=== PATIENT | male | born 1990 | race Hispanic/Latino ===

== ENCOUNTER 2020-07-08 14:52 | Emergency (ER) | payer SELFPAY ==
[2020-07-08] MEDS ORDERED: NS 1,000 ML IV ONE (16:15)
[2020-07-08 16:41] LABS: BASO % 0.4 % (0.0-1.0); EOS # 0.1 10^3/uL (0.0-0.5); EOS % 1.3 % (0.0-3.0); HEMATOCRIT 45.3 % (42.0-52.0); HEMOGLOBIN 14.8 g/dl (13.5-17.5); LYMPH # 2.6 10^3/uL (1.5-5.0); LYMPH % 34.1 % (24.0-44.0); MEAN CORPUSCULAR HEMOGLOBIN 29.7 pg (27.0-33.0); MEAN CORPUSCULAR HGB CONC 32.7 g/dl (32.0-36.5); MONO # 0.5 10^3/uL (0.0-0.8); MONO % 6.2 % (0.0-5.0); NEUTROPHILS # 4.4 10^3/uL (1.5-8.5); NEUTROPHILS % 57.6 % (36.0-66.0); PLATELET COUNT, AUTOMATED 280 10^3/uL (150-450); RED BLOOD COUNT 4.98 10^6/uL (4.30-6.10); WHITE BLOOD COUNT 7.6 10^3/uL (4.0-10.0)
[2020-07-08] MEDS ORDERED: KETOROLAC 30 MG/ML 1ML VIAL IV ONE (16:45)
--- NOTE | 2020-07-08 17:12 | REP ---
INDICATION: L flank pain, llq pain, r/o stone COMPARISON: None. TECHNIQUE: Helical scanning is acquired in 4 mm axial images were reformatted. Coronal and sagittal MPR images were generated and reviewed. 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 Lung bases are clear on axial CT images. There is mild to moderate diffuse fatty infiltration of the liver. No focal liver lesion is seen. The liver is felt to be enlarged with midclavicular line vertical span of 18.2 cm. No abnormality is noted in the gallbladder or the pancreas. The spleen is normal in size homogeneous in texture. Normal adrenal glands are seen bilaterally. No retroperitoneal mass or adenopathy is seen. There is no evidence of hydronephrosis or intrarenal calculus on either side. The kidneys appear morphologically intact. No bladder calculus is seen. The urinary bladder is largely empty. No ureteral abnormality is seen. Small and large intestinal bowel loops are normal in caliber. There is a single diverticulum projecting posteriorly from the cecum. The appendix does not appear inflamed. Prostate seminal vesicles are unremarkable. No bony destructive lesion is seen. IMPRESSION: Hepatomegaly with moderate diffuse fatty infiltration of the liver. There is a diverticulum at projecting posteriorly from the right kidney. No other abnormality. No urinary tract calculus or hydronephrosis seen. <Electronically signed by Trell Amin > 07/08/20 [id number]
[2020-07-08 17:18] LABS: ALBUMIN 4.3 GM/DL (3.2-5.2); ALT/SGPT 51 U/L (12-78); BILIRUBIN,DIRECT 0.3 MG/DL (0.0-0.2); BILIRUBIN,TOTAL 2.7 MG/DL (0.2-1.0); LIPASE 51 U/L (73-393); TOTAL PROTEIN 7.8 GM/DL (6.4-8.2)
--- NOTE | 2020-07-08 18:30 | REPVR ---
PROCEDURE INFORMATION: Exam: US Abdomen, Limited; Right Upper Quadrant Exam date and time: 07/08/2020 6:16 PM Age: 30 years old Clinical indication: Abnormal findings; Abnormal lab test; Other: Hyperbilirubinemia; Additional info: Hepatomegaly, hyperbilirubinemia TECHNIQUE: Imaging protocol: US abdomen. Real time ultrasound with image documentation. Limited exam focused on the right upper quadrant. COMPARISON: CT ABD PELVIS W/O CONTRAST 07/08/2020 4:31 PM FINDINGS: Liver: Liver is diffusely echogenic in echotexture, with no focal lesion. Gallbladder: Gallbladder is anechoic. No stone, mural edema or pericholecystic fluid. Common bile duct: Common bile duct measures 4-5 mm in diameter. Pancreas: Pancreas is not visualized secondary to acoustic shadowing from bowel. Noncontrast pancreas appeared normal on CT today Right kidney: Right kidney measures 11.5 cm in long axis. Right kidney appears normal. Intraperitoneal space: No free fluid. IMPRESSION: 1. Diffuse hepatic steatosis as seen on CT earlier today. 2. No evidence of gallstones, cholecystitis or biliary obstruction Electronically signed by: Benton Cowan On 07/08/2020 18:29:54 PM
[2020-07-08 19:54] VITALS: BP 126/102
[2020-07-10 11:26] LABS: HEPATITIS B SURFACE ANTIGEN NEGATIVE (NEGATIVE)
[2020-07-10 11:53] LABS: HEPATITIS C VIRUS ABY INDEX 0.1 INDEX (<0.8)
[2020-07-10 11:54] LABS: HEPATITIS B CORE ANTIBODY IGM NEGATIVE (NEGATIVE)
[2020-07-10 11:56] LABS: HEPATITIS A ANTIBODY IGM NEGATIVE (NEGATIVE)
== END 2020-07-08 20:16 | disposition home or self-care (01) ==
LOC: M ED 14:52
DX: R10.9 Unspecified abdominal pain (principal); E80.6 Other disorders of bilirubin metabolism; K76.0 Fatty (change of) liver, not elsewhere classified
CPT/HCPCS: 74176; 76705; 80047; 80076; 81001; 83690; 85025; 86705; 86709; 86803; 87340; 96361; 96374; 99284; J1885

== ENCOUNTER → 2020-07-28 | Outpatient (REF) | payer OTHER, SELFPAY ==
[2020-07-28 14:43] LABS: HEMOGLOBIN A1c 5.5 %
[2020-07-28 15:01] LABS: CHOLESTEROL LEVEL 132 MG/DL (<200); CHOLESTEROL RISK RATIO 3.567 (<5); HDL CHOLESTEROL 37 MG/DL (>40); LDL CHOLESTEROL 68 MG/DL (<100); NON-HDL-C 95 MG/DL; TRIGLYCERIDES LEVEL 133 MG/DL (<150)
[2020-07-28 15:07] LABS: HEPATITIS B SURFACE ANTIBODY POSITIVE (POSITIVE)
== END ==
LOC: M SFHCPLAZ 10:00
PROVIDERS: ATTEND Family Medicine
DX: K75.81 Nonalcoholic steatohepatitis (NASH) (principal); Z78.9 Other specified health status

== ENCOUNTER → 2020-08-21 | Outpatient (REF) | payer OTHER | LOC: M SFHCPLAZ 09:51 | PROVIDERS: ATTEND Family Medicine | DX: Z11.4 Encounter for screening for human immunodeficiency virus [HIV] (principal); Z11.3 Encounter for screening for infections with a predominantly sexual mode of transmission ==

== ENCOUNTER → 2021-01-12 | Outpatient (REF) | payer OTHER ==
[2021-01-12 17:54] LABS: ALT/SGPT 39 U/L (12-78); BLOOD UREA NITROGEN 24 MG/DL (7-18); CALCIUM LEVEL 10.1 MG/DL (8.5-10.1); CARBON DIOXIDE LEVEL 31 MEQ/L (21-32); CHLORIDE LEVEL 103 MEQ/L (98-107); CREATININE FOR GFR 0.85 MG/DL (0.70-1.30); GLOMERULAR FILTRATION RATE > 60.0 (>60); GLUCOSE, FASTING 71 MG/DL (70-100); POTASSIUM SERUM 3.9 MEQ/L (3.5-5.1); SODIUM LEVEL 138 MEQ/L (136-145)
[2021-01-12 17:55] LABS: ALBUMIN 4.4 GM/DL (3.2-5.2); BILIRUBIN,TOTAL 1.2 MG/DL (0.2-1.0); FERRITIN 146 NG/ML (26-388); IRON (FE) 98 UG/DL (65-175); TOTAL IRON BINDING CAPACITY 350 UG/DL (250-450); TOTAL PROTEIN 7.7 GM/DL (6.4-8.2)
[2021-01-12 18:05] LABS: AMORPHOUS SEDIMENT SMALL (NEGATIVE); APPEARANCE, URINE HAZY (CLEAR); BACTERIA, URINE AUTO NEGATIVE (NEGATIVE); BILIRUBIN, URINE AUTO NEGATIVE (NEGATIVE); BLOOD, URINE BLOOD NEGATIVE (NEGATIVE); COLOR, URINE YELLOW (YELLOW); GLUCOSE, URINE (UA) AUTO NEGATIVE (NEGATIVE); KETONE, URINE AUTO NEGATIVE (NEGATIVE); LEUKOCYTE ESTERASE, URINE AUTO NEGATIVE (NEGATIVE); MUCUS, URINE SMALL (NEGATIVE); NITRITE, URINE AUTO NEGATIVE (NEGATIVE); PROTEIN, URINE AUTO NEGATIVE (NEGATIVE); RBC, URINE AUTO 0 /HPF (0-3); SPECIFIC GRAVITY URINE AUTO 1.027 (1.002-1.035); SQUAMOUS EPITHELIAL CELL UR AU 0 /HPF (0-6); UROBILINOGEN, URINE AUTO 0.2 mg/dL (0.0-2.0); WBC, URINE AUTO 0 /HPF (0-3)
[2021-01-15 16:37] LABS: ANTI-MITOCHONDRIAL ANTIBODY <20.0 Units (0.0-20.0); ANTI-SMOOTH MUSCLE ANTIBODY 7 Units (0-19)
== END ==
LOC: M SFHCPLAZ 15:47
PROVIDERS: ATTEND Family Medicine
DX: R35.0 Frequency of micturition (principal); K76.0 Fatty (change of) liver, not elsewhere classified
CPT/HCPCS: 36415; 80053; 81001; 82728; 83550; 86255; 87490; 87590; 87661; G0103